=== PATIENT | female | born 1975 | race Caucasian/White ===

== ENCOUNTER 2019-02-28 13:11 | Emergency (ER) | payer SELFPAY ==
[2019-02-28 13:37] VITALS: RESP 18; TEMP 98.1
[2019-02-28 13:39] VITALS: BMI 30.1
[2019-02-28] MEDS ORDERED: Sodium Chloride 0.9% 1,000 ML IV ONE (13:41)
--- NOTE | 2019-02-28 14:06 | ED PDOC ---
Arrival/HPI - General Chief Complaint: Flu-like Symptoms Time Seen by Provider: 02/28/19 13:35 Historian: Patient - History of Present Illness Narrative History of Present Illness (Text): 02/28/19 14:05 43 year old [place] Latvian speaking female, with past medical history of migraines, presents to the ED complaining of headache, cough, congestion and sore throat since past 3 days. Patient reports gradually developing the head ache, which is not the worst headache she has experienced. Patient notes attempting to manage her headache with one episode of induced vomiting. She reports appropriate diet intake s/p developing sore throat. Patient denies any other associated somatic complaints. Patient denies any fevers, chills, dizziness, neurological deficits, chest pain, shortness of breath, dyspnea on exertion, diaphoresis, abdominal pain, nausea, vomiting, diarrhea, back pain, neck pain, ear pain, or any other complaints. Time/Duration: < week Symptom Onset: Gradual Symptom Course: Unchanged Activities at Onset: Light Context: Home Past Medical History - Provider Review Nursing Documentation Reviewed: Yes - Psychiatric Hx Substance Use: No Family/Social History - Physician Review Nursing Documentation Reviewed: Yes Family/Social History: No Known Family HX Smoking Status: Never Smoked Hx Alcohol Use: No Hx Substance Use: No Allergies/Home Meds Allergies/Adverse Reactions: Allergies No Known Allergies Allergy (Verified 02/28/19 13:37) Review of Systems - Physician Review All systems were reviewed & negative as marked: Yes - Review of Systems Constitutional: absent: Fevers Eyes: absent: Vision Changes ENT: Sore Throat, Other (Ongest) Respiratory: absent: SOB, Cough Cardiovascular: absent: Chest Pain Gastrointestinal: absent: Abdominal Pain, Diarrhea, Nausea, Vomiting Genitourinary Female: absent: Dysuria, Urine Output Changes Musculoskeletal: absent: Back Pain, Neck Pain Skin: absent: Rash Neurological: Headache. absent: Dizziness, Focal Weakness, Gait Changes, Speech Changes Endocrine: absent: Diaphoresis Psychiatric: absent: Anxiety Physical Exam Vital Signs Reviewed: Yes Vital Signs Temp Pulse Resp BP Pulse Ox 02/28/19 13:37 98.1 F 79 18 123/86 96 Temperature: Afebrile Blood Pressure: Normal Pulse: Regular Respiratory Rate: Normal Appearance: Positive for: Well-Appearing, Non-Toxic, Comfortable Pain Distress: None Mental Status: Positive for: Alert and Oriented X 3 - Systems Exam Head: Present: Atraumatic, Normocephalic Pupils: Present: PERRL Extroacular Muscles: Present: EOMI Conjunctiva: Present: Normal Mouth: Present: Moist Mucous Membranes Pharnyx: Present: Normal. No: ERYTHEMA, EXUDATE, TONSILS ENLARGED Nose (Internal): Present: Other (Mild sinus congestion without any sinus pain) Neck: Present: Normal Range of Motion. No: Meningeal Signs, Lymphadenopathy Respiratory/Chest: Present: Clear to Auscultation, Good Air Exchange. No: Respiratory Distress, Accessory Muscle Use Cardiovascular: Present: Regular Rate and Rhythm, Normal S1, S2. No: Murmurs Abdomen: No: Tenderness, Distention, Peritoneal Signs Upper Extremity: Present: Normal Inspection. No: Cyanosis, Edema Lower Extremity: Present: Normal Inspection. No: Edema Neurological: Present: GCS=15, CN II-XII Intact, Speech Normal Skin: Present: Warm, Dry, Normal Color. No: Rashes Psychiatric: Present: Alert, Oriented x 3, Normal Insight, Normal Concentration Medical Decision Making ED Course and Treatment: 02/28/19 13:40 Impression: 43 year old female presents to the ED for evaluation of cough, congestion and sore throat. Differential Diagnosis included but are not limited to Migraine vs viral uri. No meningeal signs, normal neuro exam at baseline. No cough folllowed by vomiting. Plan: -- CT of Head -- Labs -- Reglan -- IV Fluids -- Rapid Strep -- Reassess and disposition Prior Visits: Notes and results from previous visits were reviewed. Progress Notes: 02/28/19 15:43 CT head reviewed by radiologist, shows normal CT head. 02/28/19 15:[address] unremarkable CXR unremarkable per my read labs largely unremarkable Pt notes full resolution of pain lungs remain CTA b/l and pts neuro exam remains stable with strong, steady gait given full resolution of pain, likely bronchitis, given return indications and follow up indications, pt agreeable to plan. 02/28/19 16:42 PNA on Xray per official read: pt was given Zpack, appropriate ABX for CAP. Pt does not have any comorbidites, is healthy and does not have any recent visits to hospitals. Does not work in healthcare field. Spoke to patient with Carlos young translating: informed pt regarding PNA, importance of taking abx, followup and return indications. She is agreeable to plan. - RAD Interpretation Radiology Orders: 02/28/19 13:40 HEAD W/O CONTRAST [CT] Stat 02/28/19 13:52 CHEST TWO VIEWS (PA/LAT) [RAD] Stat - Medication Orders Current Medication Orders: Sodium Chloride (Sodium Chloride 0.9%) 1,000 mls @ 250 mls/hr IV .Q4H ONE Stop: 02/28/19 17:40 Discontinued Medications Metoclopramide HCl (Reglan) 10 mg IVP STAT STA Stop: 02/28/19 13:42 - Scribe Statement The provider has reviewed the documentation as recorded by the Scribe Divya Roberts. All medical record entries made by the Scribe were at my direction and personally dictated by me. I have reviewed the chart and agree that the record accurately reflects my personal performance of the history, physical exam, medical decision making, and the department course for this patient. I have also personally directed, reviewed, and agree with the discharge instructions and disposition. Disposition/Present on Arrival - Present on Arrival Any Indicators Present on Arrival: No History of DVT/PE: No History of Uncontrolled Diabetes: No Urinary Catheter: No History of Decub. Ulcer: No History Surgical Site Infection Following: None - Disposition Have Diagnosis and Disposition been Completed?: Yes Diagnosis: Bronchitis, Migraine Disposition: HOME/ ROUTINE Disposition Time: 15:49 Condition: STABLE Discharge Instructions (ExitCare): Acute Bronchitis, Adult (DC), Migraine Headache (DC) Additional Instructions: MAGO DENISE, thank you for letting us take care of you today. Your provider was Enrike Warren and you were treated for HEADACH. The emergency medical care you received today was directed at your acute symptoms. If you were prescribed any medication, please fill it and take as directed. It may take several days for your symptoms to resolve. Return to the Emergency Department if your symptoms worsen, do not improve, or if you have any other problems. Please contact your doctor or call one of the physicians/clinics you have been referred to that are listed on the Patient Visit Information form that is included in your discharge packet. Bring any paperwork you were given at discharge with you along with any medications you are taking to your follow up visit. Our treatment cannot replace ongoing medical care by a primary care provider outside of the emergency department. Thank you for allowing the [facility] team to be part of your care today. If you had an X-Ray or CT scan: A Radiologist will review the ED reading if any change in treatment is needed we will contact you. If you had a blood, urine, or wound culture: It will take several days for the results, if any change in treatment is needed we will contact you. If you had an STI test: It will take 48 hours for the results. Please call after 1 week if you have not heard back. Prescriptions: Azithromycin [Z-David] 250 mg PO DAILY #6 tab Referrals: [facility] [Outside] - Follow up with primary [facility] [Outside] - Follow up with primary [facility] [place]] - Follow up with primary Bogdan Pradhan MD [Staff Provider] - Follow up with primary Mercedez Hand MD [Staff Provider] - Follow up with primary Kait Brennan MD [Medical Doctor] - Follow up with primary Forms: [facility] [employer] [facility] (Greenlandic)
[2019-02-28 14:22] LABS: BASO # 0.03 K/mm3 (0.0-2.0); BASO % 0.7 % (0.0-3.0); EOS # 0.1 (0.0-0.7); EOS % 1.2 % (1.5-5.0); HEMOGLOBIN 13.7 g/dL (12.0-16.0); LYMPH # 1.5 (1.2-3.4); LYMPH % 34.2 % (22.0-35.0); MEAN CORPUSCULAR HEMOGLOBIN 26.8 pg (25.0-35.0); MEAN CORPUSCULAR HGB CONC 32.7 g/dl (31.0-37.0); MONO # 0.4 (0.1-0.6); MONO % 10.3 % (1.0-6.0); RBC 5.11 10^6/uL (3.5-6.1); WHITE BLOOD COUNT 4.3 10^3/uL (4.5-11.0)
[2019-02-28 14:34] LABS: ALB/GLOB RATIO 1.1 (1.1-1.8); ALBUMIN 4.1 g/dL (3.0-4.8); ALT/SGPT 18 U/L (7-56); AST/SGOT 23 U/L (14-36); BLOOD UREA NITROGEN 16 mg/dL (7-21); CALCIUM 9.1 mg/dL (8.4-10.5); GFR NON-AFRICAN AMERICAN > 60
--- NOTE | 2019-02-28 15:33 | CT ---
Date of service: 02/28/2019 PROCEDURE: CT HEAD WITHOUT CONTRAST. HISTORY: [facility] COMPARISON: None available. TECHNIQUE: Axial computed tomography images were obtained through the head/brain without intravenous contrast. Radiation dose: Total exam DLP = 911.71 mGy-cm. This CT exam was performed using one or more of the following dose reduction techniques: Automated exposure control, adjustment of the mA and/or kV according to patient size, and/or use of iterative reconstruction technique. FINDINGS: HEMORRHAGE: No intracranial hemorrhage. BRAIN: No mass effect or edema. No atrophy or chronic microvascular ischemic changes. VENTRICLES: Unremarkable. No hydrocephalus. CALVARIUM: Unremarkable. PARANASAL SINUSES: Unremarkable as visualized. No significant inflammatory changes. MASTOID AIR CELLS: Unremarkable as visualized. No inflammatory changes. OTHER FINDINGS: None. IMPRESSION: Normal CT of the Head.
[2019-02-28 15:57] VITALS: BP 92/58; PULSE 74; O2SAT 97
--- NOTE | 2019-02-28 16:25 | RAD ---
Date of service: 02/28/2019 HISTORY: cough COMPARISON: No prior. TECHNIQUE: Chest PA and lateral views FINDINGS: LUNGS: There is a patchy infiltrate in the left upper lobe suspicious for pneumonia PLEURA: No significant pleural effusion identified. No pneumothorax apparent. CARDIOVASCULAR: No aortic atherosclerotic calcification present. Normal cardiac size. No pulmonary vascular congestion. OSSEOUS STRUCTURES: No significant abnormalities. VISUALIZED UPPER ABDOMEN: Normal. OTHER FINDINGS: None. IMPRESSION: There is a patchy infiltrate in the left upper lobe suspicious for pneumonia
== END 2019-02-28 16:16 | disposition home or self-care (01) ==
LOC: ED 13:11
DX: J40 Bronchitis, not specified as acute or chronic (principal); G43.909 Migraine, unspecified, not intractable, without status migrainosus
CPT/HCPCS: 70450; 71046; 80053; 81025; 85025; 87070; 87430; 96361; 96374; 99284; J2765; J7030

== ENCOUNTER 2019-04-12 09:10 | Outpatient (CLI) | payer SELFPAY | END 2019-04-12 09:11 | disposition home or self-care (01) | LOC: LAB 09:10 ==